=== PATIENT | female | born 1995 | race American Indian/Alaskan Native ===

== ENCOUNTER 2016-08-29 13:16 | Outpatient (CLI) | payer BC, MEDICAID | END 2016-08-29 16:10 | disposition home or self-care (01) | LOC: LAB 13:16 → TRG 15:53 → LAB 16:10 | PROVIDERS: ATTEND Obstetrics & Gynecology | DX: O36.0930 Maternal care for other rhesus isoimmunization, third trimester, not applicable or unspecified (principal); Z3A.28 28 weeks gestation of pregnancy | CPT/HCPCS: 86850; 86900; 86901; 96372; J2790 ==

== ENCOUNTER 2016-11-11 00:37 | Inpatient (IN) | payer BC, MEDICAID ==
[2016-11-11] MEDS ORDERED: XYLOCAINE 2% INFILTRATI ONE ×2 (03:39→12:37)
[2016-11-11] MEDS ORDERED: MINERAL OIL PO PRN (03:39)
[2016-11-11] MEDS ORDERED: ePHEDrine SULFATE IV PRN ×2 (03:39→05:43)
[2016-11-11] MEDS ORDERED: PITOCin/NS 20 UNIT/1000ML DRIP 20 UNITS/1,000 ML BAG IV SCH (04:00)
[2016-11-11 04:05] LABS: Hematocrit 36.8 % (30.3-42.9); Hemoglobin 12.2 gm/dl (10.1-14.3); Mean Corpuscular HGB Conc 33 % (30-34); Mean Corpuscular Hemoglobin 28 pg (28-32); Mean Corpuscular Volume 85 fl (79-97); Platelet Count 226 K/mm3 (140-440); Red Blood Count 4.31 M/mm3 (3.65-5.03); Red Cell Distribution Width 15.3 % (13.2-15.2); White Blood Count 7.9 K/mm3 (4.5-11.0)
[2016-11-11] MEDS ORDERED: SUBLIMAZE ONE (04:45)
[2016-11-11] MEDS ORDERED: SUBLIMAZE IV ONE (04:54)
[2016-11-11] MEDS ORDERED: ePHEDrine SULFATE ONE (05:02)
[2016-11-11] MEDS ORDERED: NARCAN 2 MG/2 ML IV PRN (05:43)
--- NOTE | 2016-11-11 05:43 | Anesthesia Consultation ---
Anesthesia Consult and Med Hx Date of service: 11/11/16 - Airway Anesthetic Teeth Evaluation: Good ROM Head & Neck: Adequate Mental/Hyoid Distance: Adequate Mallampati Class: Class II Intubation Access Assessment: Probably Good - Pulmonary Exam CTA: Yes - Cardiac Exam Cardiac Exam: RRR - Pre-Operative Health Status ASA Pre-Surgery Classification: ASA2 Proposed Anesthetic Plan: Epidural - Pulmonary Hx Asthma: No COPD: No Hx Pneumonia: No - Cardiovascular System Hx Hypertension: No - Central Nervous System Hx Seizures: No Hx Psychiatric Problems: No - Endocrine Hx Renal Disease: No Hx End Stage Renal Disease: No Hx Hypothyroidism: No Hx Hyperthyroidism: No - Hematic Hx Anemia: No Hx Sickle Cell Disease: No - Other Systems Hx Alcohol Use: No
[2016-11-11] MEDS: LACTATED RINGERS 1,000 ML IV SCH ×2 (05:44→05:45)
[2016-11-11] MEDS ORDERED: fentaNYL-BUPIV 2 MCG/ML-0.125% 200 MCG/100 ML BAG EPIDURAL ONE (05:47)
[2016-11-11] MEDS ORDERED: fentaNYL-BUPIV 2 MCG/ML-0.125% 200 MCG/100 ML BAG EPIDURAL SCH (06:00)
--- NOTE | 2016-11-11 07:34 | History and Physical Report ---
History of Present Illness Date of examination: 11/11/16 Date of admission: 11/11/16 03:11 Chief complaint: Patient complains of contractions all day. History of present illness: Patient complains of painful uterine contractions all day. She denies VB or LOF. She reports active movement. Past History Past Medical History: no pertinent history Past Surgical History: no surgical history [employer] History: denies: herpes, trichomonas Family/Genetic History: none Social history: no significant social history - Obstetrical History Expected Date of Delivery: 11/15/16 Actual Gestation: 39 Week(s) 3 Day(s) : 1 Para: 0 Hx # Term Pregnancies: 1 Number of Pregnancies: 0 Spontaneous Abortions: 0 Induced : 1 Number of Living Children: 0 Medications and Allergies Allergies Allergy/AdvReac Type Severity Reaction Status Date / Time No Known Allergies Allergy Verified 08/29/16 16:17 Home Medications Medication Instructions Recorded Confirmed Last Taken Type No Known Home Medications [No 11/11/16 11/11/16 Unknown History Reported Home Medications] Active Meds: Active Medications Lactated Ringer's (Lactated Ringers) 1,000 mls @ 125 mls/hr IV DIRECT FELIPE Last Admin: 11/11/16 05:45 Dose: 125 mls/hr Oxytocin/Sodium Chloride (Pitocin/Ns 20 Unit/1000ml Drip) 20 units in 1,000 mls @ 125 mls/hr IV DIRECT FELIPE Oxytocin/Sodium Chloride (Pitocin/Ns 30 Unit/500ml) 30 units in 500 mls @ 1 mls /hr IV TITR FELIPE; 1 MILLIUNITS/MIN PRN Reason: Protocol Fentanyl/Bupivacaine/Sodium Chlor (Fentanyl-Bupiv 2 Mcg/Ml-0.125%) 200 mcg in 100 mls @ 12 mls/hr EPIDURAL TITR FELIPE PRN Reason: Protocol Last Admin: 11/11/16 06:06 Dose: 12 mls/hr Mineral Oil (Mineral Oil) 30 ml PO QHS PRN PRN Reason: Constipation Review of Systems Constitutional: no fever, no chills, no fatigue Eyes: deferred Ears, nose, mouth and throat: deferred Cardiovascular: no edema Respiratory: no cough Breasts: deferred Gastrointestinal: no abdominal pain, no vomiting, no excessive gas Genitourinary: no vaginal discharge, no pelvic pain, no hematuria, no genital sores Rectal Exam: deferred Musculoskeletal: no low back pain Integumentary: no rash Neurological: no syncope, no headaches Psychiatric: no anxiety Endocrine: no nocturia, no thyroid mass - Vital Signs Vital signs: Vital Signs Pulse Pulse Ox 375 H 93 11/11/16 01:10 11/11/16 01:10 Temp Pulse Resp BP Pulse Ox 97.6 F 76 16 103/59 98 11/11/16 07:24 11/11/16 07:25 11/11/16 07:24 11/11/16 07:24 11/11/16 07:25 - Physical Exam Breasts: Positive: deferred Cardiovascular: Normal S1, Normal S2 Abdomen: Positive: normal appearance, soft, normal bowel sounds. Negative: distention, tenderness Genitourinary (Female): Positive: normal external genitalia, normal perenium, perineal/vulvar lesions Vulva: both: normal Vagina: Positive: normal moisture. Negative: discharge Cervix: Negative: lesion, discharge Uterus: Positive: normal size, normal contour Adnexa: both: normal Anus/Rectum: Negative: rectal mass, hemorrhoids Extremities: Deep Tendon Reflex Grade: Normal +2 - Obstetrical FHR: auscultation normal Results Result Diagrams: 11/11/16 03:25 Abnormal lab results 11/11/16 Range/Units 03:25 RDW 15.3 H (13.2-15.2) % All other labs normal. Assessment and Plan A: at 39 weeks, 3 days gestaton Labor. GBS negative. P: Admit patient. Pitocin augmentation of labor if needed. Anticipate . - Patient Problems (1) Labor established Current Visit: Yes Status: Acute
[2016-11-11] MEDS: PITOCin/NS 30 UNIT/500ML 30 UNITS/500 ML BAG IV SCH ×3 (07:43→08:56)
--- NOTE | 2016-11-11 09:21 | Event Note ---
Date: 11/11/16 SVE 9/-1. AROM with moderate amount of clear fluid. Membranes were ruptured at 09:12 to augment labor. Reassuring heart rate tracing. Maternal vital signs stable. Contractions every 2-4 minutes. Uterus palpates soft between contractions.
[2016-11-11] MEDS ORDERED: METHERGINE IM ONE (12:49)
[2016-11-11] MEDS ORDERED: ANUCORT-HC PR PRN (13:05)
[2016-11-11] MEDS ORDERED: MILK OF MAGNESIA PO PRN (13:05)
[2016-11-11] MEDS ORDERED: TUCKS PAD TP PRN (13:05)
[2016-11-11] MEDS ORDERED: TYLENOL PO PRN (13:05)
[2016-11-11] MEDS ORDERED: LANSINOH TP PRN (13:05)
[2016-11-11] MEDS ORDERED: ZOFRAN IV PRN (13:05)
[2016-11-11] MEDS ORDERED: SOLARCAINE ALOE TP PRN (13:05)
[2016-11-11] MEDS ORDERED: BENADRYL PO PRN (13:05)
[2016-11-11] MEDS ORDERED: PHENERGAN PO PRN (13:05)
[2016-11-11] MEDS ORDERED: METHERGINE IM PRN (13:05)
[2016-11-11] MEDS ORDERED: DULCOLAX PR PRN (13:05)
[2016-11-11] MEDS ORDERED: PHENERGAN PR PRN (13:05)
--- NOTE | 2016-11-11 13:05 | Procedure Note ---
OB Delivery Note - Delivery Date of Delivery: 11/11/16 Surgeon: EMILY FARIAS Estimated blood loss: 300cc - Vaginal Delivery presentation: vertex Delivery position: OA Intrapartum events: prolonged 2nd stage>2.5hr, mult.variable deceleratio, shoulder dystocia (Less than 30 seconds and resolved with suprapubic pressure, Nando) Delivery induction: oxytocin Route of delivery: vacuum extraction Indicators for instrumentation: other (multiple variable decelerations, maternal exhaustion) Delivery placenta: spontaneous Delivery cord: nuchal cord (x 1 ), 3 umbilical vessels Episiotomy: none Delivery laceration: 2nd degree, vaginal side wall Delivery repair: vicryl Anesthesia: epidural - Infant A at 1 minute: 8 at 5 minutes: 9 Gender: Female (time of delivery was 12:36, infant weight was 6 lbs. 12 oz. or 3074 g)
[2016-11-11] MEDS ORDERED: SODIUM CHLORIDE FLUSH SYRINGE 10 ML IV NR (14:00)
[2016-11-11] MEDS: NORCO 5/325 PO PRN (16:00)
[2016-11-11] MEDS: FEOSOL PO SCH (20:30)
[2016-11-11] MEDS: COLACE PO SCH (20:31)
[2016-11-11] MEDS: MOTRIN PO SCH (20:31)
[2016-11-11] MEDS: SENOKOT S PO SCH (22:59)
[2016-11-12 00:42] LABS: Hematocrit 34.9 % (30.3-42.9); Hemoglobin 11.4 gm/dl (10.1-14.3)
[2016-11-12] MEDS: MOTRIN PO SCH ×2 (01:44→14:08)
[2016-11-12] MEDS: COLACE PO SCH ×2 (08:48→22:21)
[2016-11-12] MEDS: PRENATAL VITAMIN PO SCH (08:49)
[2016-11-12] MEDS: FEOSOL PO SCH ×2 (08:49→22:19)
--- NOTE | 2016-11-12 09:59 | Progress Note ---
Assessment and Plan - Patient Problems (1) Labor established Current Visit: Yes Status: Acute Subjective - Subjective Date of service: 11/12/16 Principal diagnosis: day 1 S/P VAVD Interval history: S: Patient is doing well. Bottlefeeding. Patient is voiding without difficulty and ambulating well. Patient is tolerating a regular diet. She denies headache, cough, chest pain, abdominal pain, leg pain, heavy vaginal bleeding, or symptoms of depression. O: Patient is well appearing, alert, oriented, NAD. Lungs clear to auscultation bilaterally. Heart RRR without murmur. Abdomen soft, nontender, not distended. Fundus firm and midline. Bilateral lower extremities without pain or edema. A: day 1 S/P VAVD of liveborn female infant. Anemia. Bottlefeeding. P: Continue iron supplements. Continue ambulation. Plan for discharge tomorrow AM. RhoGAM workup pending. Objective - Vital Signs Vital Signs: Vital Signs - 12hr 11/12/16 11/12/16 00:00 07:24 Temperature 98.4 F 98.4 F Pulse Rate 86 76 Respiratory 18 20 Rate Blood Pressure 100/51 90/52 - Labs Labs: Abnormal Labs 11/11/16 03:25 RDW 15.3 H Laboratory Results - last 24 hr 11/11/16 11/12/16 11/12/16 03:25 00:05 00:05 Hgb 11.4 Hct 34.9 RPR Nonreactive Blood Type O NEGATIVE Antibody Screen TNR DEMETRIUS Antibody Screen Negative Screen Negative
[2016-11-12] MEDS: NORCO 5/325 PO PRN (14:09)
[2016-11-12] MEDS: SENOKOT S PO SCH (22:20)
[2016-11-13] MEDS: MOTRIN PO SCH ×3 (00:13→11:30)
[2016-11-13] MEDS: COLACE PO SCH (09:28)
[2016-11-13] MEDS: PRENATAL VITAMIN PO SCH (09:28)
[2016-11-13] MEDS: FEOSOL PO SCH (09:28)
--- NOTE | 2016-11-13 11:36 | Progress Note ---
Assessment and Plan A: PP Day #2 Stable P: Follow Routine Orders D/C Home today Plans Nexplanon for PP Contraception RTO in 6 Weeks Subjective - Subjective Principal diagnosis: day 1 S/P VAVD Patient reports: appetite normal, voiding normally, pain well controlled, flatus , ambulating normally : doing well, bottle feeding Objective - Vital Signs Latest vital signs: Vital Signs Temp Pulse Resp BP 11/13/16 08:30 97.6 F 62 18 92/51 11/13/16 00:00 98.6 F 74 16 101/72 11/12/16 17:08 98.0 F 80 20 110/70 11/12/16 14:09 20 11/12/16 14:08 20 11/12/16 12:11 98.2 F 86 20 102/54 Intake and Output 11/12/16 11/13/16 11/13/16 22:59 06:59 14:59 Intake Total 240 250 Balance 240 250 Intake: Oral 240 250 Other: Total, Intake Amount 240 250 # Voids Void 1 - Exam Breasts: Present: normal Cardiovascular: Present: Regular rate Lungs: Present: Clear to auscultation, Normal air movement Abdomen: Present: normal appearance, soft, normal bowel sounds Uterus: Present: normal, firm, fundal height below umbilicus Extremities: Present: normal
--- NOTE | 2016-11-13 11:37 | Discharge Summary ---
Providers - Providers Date of Admission: 11/11/16 03:11 Date of discharge: 11/13/16 Attending physician: WAYNE HSIEH MD Primary care physician: WAYNE HSIEH MD Hospitalization Reason for admission: active labor Delivery: Episiotomy: none Laceration: 2nd degree complications: none Discharge diagnosis: IUP at term delivered [place] baby: female Condition at discharge: Good Disposition: DC-01 TO HOME OR SELFCARE Plan - Discharge Medications Prescriptions: HYDROcodone/APAP 5-325 [[place] 5/325] 1 each PO Q6HR PRN #30 tablet PRN Reason: Pain Ibuprofen [Motrin 600 MG tab] 600 mg PO Q8H PRN #30 tablet PRN Reason: Pain Multivitamin with Iron [Multivitamins with Iron] 1 each PO DAILY #30 tablet - Provider Discharge Summary Activity: routine, no sex for 6 weeks, no heavy lifting 4 weeks, no strenuous exercise Diet: routine Instructions: routine Additional instructions: [] Smoking cessation referral if applicable(refer to patient education folder for contact #) [] Refer to [facility] Booklet Call your doctor immediately for: * Fever > 100.5 * Heavy vaginal bleeding ( >1 pad per hour) * Severe persistent headache * Shortness of breath * Reddened, hot, painful area to leg or breast * Drainage or odor from incision. * Keep incision clean and dry at all times and follow doctor's instructions regarding bathing/showering - Follow up plan Follow up: WAYNE SAINI MD [Primary Care Provider] - 7 Days
[2016-11-13 17:25] VITALS: BP 113/61
== END 2016-11-13 15:50 | disposition home or self-care (01) | DRG 775 ==
LOC: TRG 00:37 → LD 03:11 → TRG 03:11 → OB 15:11
PROVIDERS: ADMIT Obstetrics & Gynecology; ATTEND Obstetrics & Gynecology
PROC: 10D07Z6 Extraction of Products of Conception, Vacuum, Via Natural or Artificial Opening (ICD-10-PCS; principal; 2016-11-11)
PROC: 0KQM0ZZ Repair Perineum Muscle, Open Approach (ICD-10-PCS; 2016-11-11)
PROC: 3E033VJ Introduction of Other Hormone into Peripheral Vein, Percutaneous Approach (ICD-10-PCS; 2016-11-11)
PROC: 3E0R3BZ Introduction of Anesthetic Agent into Spinal Canal, Percutaneous Approach (ICD-10-PCS; 2016-11-11)
PROC: 00HU33Z Insertion of Infusion Device into Spinal Canal, Percutaneous Approach (ICD-10-PCS; 2016-11-11)
DX: O76 Abnormality in fetal heart rate and rhythm complicating labor and delivery (principal); Z3A.39 39 weeks gestation of pregnancy; Z37.0 Single live birth; O63.1 Prolonged second stage (of labor); O66.0 Obstructed labor due to shoulder dystocia; O69.81X0 Labor and delivery complicated by cord around neck, without compression, not applicable or unspecified; O75.81 Maternal exhaustion complicating labor and delivery; O70.1 Second degree perineal laceration during delivery
CPT/HCPCS: 36415; 85014; 85018; 85027; 85461; 86592; 86850; 86900; 86901; J2210; J2590; J3010; J7120

== ENCOUNTER 2017-07-09 08:27 | Emergency (ER) | payer MEDICAID | END 2017-07-09 08:39 | disposition left against medical advice (07) | LOC: ED 08:27 | DX: R51 Headache (principal); R50.9 Fever, unspecified; Z53.21 Procedure and treatment not carried out due to patient leaving prior to being seen by health care provider ==